=== PATIENT | male | born 1970 | race Caucasian/White ===

== ENCOUNTER → 2020-09-28 | Outpatient (CLI) | payer BC ==
[~2020-09-28] MED LIST: PRD20T PO
--- NOTE | 2020-09-28 13:56 | Diagnostic Imaging Report ---
INDICATION: Left hip pain for one week. No known injury. Two views of the left hip show no fracture, dislocation or other abnormality. IMPRESSION: Normal left hip. Dictated by: Dictated on workstation # [id number]
== END ==
LOC: RAD FS 13:05
PROVIDERS: ATTEND Nurse Practitioner
DX: M25.552 Pain in left hip (principal)
CPT/HCPCS: 73502